=== PATIENT | male | born 1960 | race Caucasian/White ===

== ENCOUNTER 2022-06-05 10:42 | Outpatient (CLI) | payer OTHER, SELFPAY ==
--- NOTE | ~2022-06-05 | US_ITS ---
Testicular ultrasound with doppler. Indication: Right testicular pain. Technique: Real-time sonography the scrotum was performed. Color flow Doppler and Doppler spectral an alysis were performed. Findings: The testes are homogeneous in echotexture bilaterally. There is no evidence of an intrates ticular mass. The right testis measures 4.7 x 3.3 x 2.4 cm and the left 3.2 x 3.0 x 2.9 cm. There is color-flow seen to both testes. Arterial and venous spectral waveforms are seen in both testes. There is no sonographic evidence of torsion. The head of the epididymis is visualized bilaterally and is within normal limits. Small right hydrocele noted. Impression: Small right hydrocele, otherwise unremarkable exam. Reviewed, dictated and finalized at location . Impression: Small right hydrocele, otherwise unremarkable exam.
== END 2022-06-05 10:43 | disposition home or self-care (01) ==
PROVIDERS: Visit Provider Urology
DX: N50.811 Right testicular pain (principal); N43.3 Hydrocele, unspecified
CPT/HCPCS: 76870; 93976